=== PATIENT | male | born 1960 | race Caucasian/White ===

== ENCOUNTER 2016-04-25 11:41 | Inpatient (IN) | payer MEDICARE, MEDICAID ==
[2016-04-25] MEDS ORDERED: Ondansetron INJ* 2 MG/ML VIAL IV ONE ×2 (14:39→15:21)
[2016-04-25] MEDS ORDERED: Morphine INJ* 4 MG/ML 1 ML SYRINGE IV ONE ×3 (14:39→17:44)
[2016-04-25] MEDS: NS 0.9% 1000 ML* 2,000 ML IV ONE (14:48)
[2016-04-25 14:51] LABS: Hematocrit 44 % (42-52); Hemoglobin 14.5 g/dl (14.0-18.0); Mean Corpuscular HGB Conc 33 g/dl (31-36); Mean Corpuscular Hemoglobin 31 pg (27-31); Mean Corpuscular Volume 95 fL (80-94); Mean Platelet Volume 9 um3 (7.4-10.4); Red Blood Count 4.62 10^6/ul (4.0-5.4); Red Cell Distribution Width 13 % (10.5-15); White Blood Count 11.8 10^3/ul (3.5-10.8)
[2016-04-25 15:11] LABS: Troponin I 0.01 ng/mL (<0.04)
[2016-04-25 15:13] LABS: B Type Natriuretic Peptide 39 pg/mL
[2016-04-25 15:16] LABS: Ammonia 34 mol/L (16-53)
[2016-04-25 15:17] LABS: Acetaminophen < 15 mcg/mL; Alcohol < 10 mg/dL (<10)
[2016-04-25 15:18] LABS: ALT 11 U/L (7-52); AST 11 U/L (13-39); Albumin 4.5 g/dL (3.2-5.2); Alkaline Phosphatase 51 U/L (34-104); Anion Gap 12 mmol/L (2-11); BUN/Creatinine Ratio 29.3 (8-20); Blood Urea Nitrogen 22 mg/dL (6-24); C Reactive Protein 3.53 mg/L (< 5.00); CO2 Carbon Dioxide 29 mmol/L (22-32); Calcium 9.7 mg/dL (8.6-10.3); Chloride 94 mmol/L (101-111); Creatine Kinase 167 U/L (10-223); EGFR African American 138.1 (>60); EGFR Non-African American 107.3 (>60); Globulin 3.2 g/dL (2-4); Glucose 98 mg/dL (70-100); Lipase 35 U/L (11.0-82.0); Magnesium 2.2 mg/dL (1.9-2.7); Potassium 3.9 mmol/L (3.5-5.0); Sodium 135 mmol/L (133-145); TSH (Thyroid Stimulating Horm) 1.58 mcIU/mL (0.34-5.60); Total Protein 7.7 g/dL (6.4-8.9)
--- NOTE | 2016-04-25 15:38 | RAD ---
INDICATION: Abdominal pain. COMPARISON: Comparison is made with a prior chest x-ray study from December 21, [address] of the chest from April 13, 2011. TECHNIQUE: A portable view of the chest was obtained. FINDINGS: The heart is within normal limits in size. There is a moderate to large hiatal hernia present which appears similar to the prior study. The lungs are clear. No pleural effusion is seen. IMPRESSION: MODERATE TO LARGE HIATAL HERNIA, UNCHANGED.
[2016-04-25] MEDS ORDERED: Iohexol 300* (CONTRAST) 10 ML SDV IV ONE (15:57)
--- NOTE | 2016-04-25 17:26 | RAD ---
Indication: Abdominal pain. Contrast: Administered 72.0 ml of OMNIPAQUE 300 mgi/ml CT of the abdomen and pelvis was performed after oral and IV contrast administration. Lung bases demonstrate no pleural fluid, nodules or masses. There is a large dilated stomach proximally. There is a large paraesophageal hernia containing contrast. There is minimal fluid in the descending duodenum and gastric antrum. The possibility of gastric outlet obstruction should BE considered. The liver is normal in size. No focal lesions or intrahepatic ductal dilatation noted. The gallbladder demonstrates no calcified gallstones. No pericholecystic fluid or wall thickening is noted. The pancreas demonstrates no mass or pancreatic ductal dilatation. The spleen is normal in size. No adrenal masses are noted. The kidneys demonstrate symmetric nephrograms without focal lesions. The retroperitoneal lymphadenopathy is noted. Small bowel demonstrates no evidence of abnormal dilatation. The colon is filled with stool. The kidneys demonstrate symmetric nephrograms without focal lesions. No hydronephrosis is noted. CT of the pelvis demonstrates no retroperitoneal or pelvic lymphadenopathy. The urinary bladder is unremarkable. IMPRESSION: Large paraesophageal hiatal hernia with what appears to be gastric outlet obstruction. Small bowel and colon are otherwise nondilated. Findings discussed with Dr. Maria at the time of the examination.
[2016-04-25 17:34] VITALS: BP 118/67
--- NOTE | 2016-04-25 17:49 | ED ---
Arpit Main Billy, scribed for Vick Maria MD on 04/25/16 at 1433 . Abdominal Pain/Male - HPI Summary HPI Summary: Patient is a 55 year-old male coming [facility] presenting with epigastric pain for the last 4 days. Pain severity 8/10. He states that he has had abdominal pain intermittently for several months, but the pain was much worse today. Worse with any food intake. Positive nausea, vomiting, and dysuria. Last BM 4 days ago. - History of Current Complaint Chief Complaint: EDAbdPain Stated Complaint: ABD PAIN Time Seen by Provider: 04/25/16 14:29 Hx Obtained From: Patient Onset/Duration: Gradual Onset, Lasting Days, Still Present Timing: Constant Severity Initially: Moderate Severity Currently: Moderate Pain Intensity: 8 Pain Scale Used: 0-10 Numeric Location: Epigastric Radiates: No Aggravating Factor(s): Food Alleviating Factor(s): Nothing Associated Signs And Symptoms: Positive: Constipation, Urinary Symptoms, Nausea , Vomiting - Allergies/Home Medications Allergies/Adverse Reactions: Allergies Allergy/AdvReac Type Severity Reaction Status Date / Time No Known Allergies Allergy Verified 04/25/16 13:14 PMH/Surg Hx/FS Hx/Imm Hx Endocrine/Hematology History: Denies: Hx Diabetes Cardiovascular History: Reports: Hx Hypertension GI History: Reports: Hx Gastroesophageal Reflux Disease Infectious Disease History: No Infectious Disease History: Denies: Traveled Outside the [place] in Last 30 Days - Family History Known Family History: Positive: Cardiac Disease - brother, father both at age 56, Other - leukemia (mother) - Social History Alcohol Use: Rare Substance Use Type: Reports: None Smoking Status (MU): Never Smoked Tobacco Review of Systems Negative: Fever Positive: Abdominal Pain, Vomiting, Nausea, Other - constipation Positive: dysuria All Other Systems Reviewed And Are Negative: Yes Physical Exam Triage Information Reviewed: Yes Vital Signs On Initial Exam: Initial Vitals Temp Pulse Resp BP Pulse Ox 98.2 F 102 18 98/69 98 04/25/16 11:41 04/25/16 11:41 04/25/16 11:41 04/25/16 11:41 04/25/16 11:41 Vital Signs Reviewed: Yes Appearance: Positive: Pain Distress - moderate Skin: Positive: Warm, Skin Color Reflects Adequate Perfusion, Dry Head/Face: Positive: Normal Head/Face Inspection Eyes: Positive: EOMI, ELIZABETH ENT: Positive: Normal ENT inspection Neck: Positive: Supple, Nontender Respiratory/Lung Sounds: Positive: Clear to Auscultation, Breath Sounds Present Cardiovascular: Positive: Tachycardia Abdomen Description: Positive: Soft, Other: - diffuse tenderness Bowel Sounds: Positive: Other - high-pitched Musculoskeletal: Positive: Normal, Strength/ROM Intact Neurological: Positive: Normal, Sensory/Motor Intact, Alert, Oriented to Person Place, Time Psychiatric: Positive: Affect/Mood Appropriate - M[place]ulley Coma Scale Coma Scale Total: 15 Diagnostics - Vital Signs Vital Signs Temp Pulse Resp BP Pulse Ox 04/25/16 12:45 98.0 F 96 18 102/61 99 04/25/16 11:41 98.2 F 102 18 98/69 98 - Laboratory Lab Results: Lab Results 04/25/16 04/25/16 04/25/16 Range/Units 14:30 14:30 14:30 WBC 11.8 H (3.5-10.8) 10^3/ul RBC 4.62 (4.0-5.4) 10^6/ul Hgb 14.5 (14.0-18.0) g/dl Hct 44 (42-52) % MCV 95 H (80-94) fL MCH 31 (27-31) pg MCHC 33 (31-36) g/dl RDW 13 (10.5-15) % Plt Count 266 (150-450) 10^3/ul MPV 9 (7.4-10.4) um3 Neut % (Auto) 74.2 (38-83) % Lymph % (Auto) 15.3 L (25-47) % Robeson % (Auto) 10.2 H (1-9) % Eos % (Auto) 0 (0-6) % Baso % (Auto) 0.3 (0-2) % Absolute Neuts (auto) 8.7 H (1.5-7.7) 10^3/ul Absolute Lymphs (auto) 1.8 (1.0-4.8) 10^3/ul Absolute Monos (auto) 1.2 H (0-0.8) 10^3/ul Absolute Eos (auto) 0 (0-0.6) 10^3/ul Absolute Basos (auto) 0 (0-0.2) 10^3/ul Absolute Nucleated RBC 0.01 10^3/ul Nucleated RBC % 0.1 INR (Anticoag Therapy) 0.97 (0.89-1.11) APTT 24.2 L (26.0-36.3) seconds Sodium 135 (133-145) mmol/L Potassium 3.9 (3.5-5.0) mmol/L Chloride 94 L (101-111) mmol/L Carbon Dioxide 29 (22-32) mmol/L Anion Gap 12 H (2-11) mmol/L BUN 22 (6-24) mg/dL Creatinine 0.75 (0.67-1.17) mg/dL Est GFR ( Amer) 138.1 (>60) Est GFR (Non-Af Amer) 107.3 (>60) BUN/Creatinine Ratio 29.3 H (8-20) Glucose 98 (70-100) mg/dL Lactic Acid (0.5-2.0) mmol/L Calcium 9.7 (8.6-10.3) mg/dL Magnesium 2.2 (1.9-2.7) mg/dL Total Bilirubin 0.60 (0.2-1.0) mg/dL AST 11 L (13-39) U/L ALT 11 (7-52) U/L Alkaline Phosphatase 51 (34-104) U/L Ammonia (16-53) mol/L Total Creatine Kinase 167 (10-223) U/L CK-MB (CK-2) 7.8 H (0.6-6.3) ng/mL Troponin I 0.01 (<0.04) ng/mL C-Reactive Protein 3.53 (< 5.00) mg/L B-Natriuretic Peptide ( - 100) pg/mL Total Protein 7.7 (6.4-8.9) g/dL Albumin 4.5 (3.2-5.2) g/dL Globulin 3.2 (2-4) g/dL Albumin/Globulin Ratio 1.4 (1-3) Lipase 35 (11.0-82.0) U/L TSH 1.58 (0.34-5.60) mcIU/mL Acetaminophen < 15 mcg/mL Serum Alcohol < 10 (<10) mg/dL 04/25/16 04/25/16 Range/Units 14:30 14:30 WBC (3.5-10.8) 10^3/ul RBC (4.0-5.4) 10^6/ul Hgb (14.0-18.0) g/dl Hct (42-52) % MCV (80-94) fL MCH (27-31) pg MCHC (31-36) g/dl RDW (10.5-15) % Plt Count (150-450) 10^3/ul MPV (7.4-10.4) um3 Neut % (Auto) (38-83) % Lymph % (Auto) (25-47) % Robeson % (Auto) (1-9) % Eos % (Auto) (0-6) % Baso % (Auto) (0-2) % Absolute Neuts (auto) (1.5-7.7) 10^3/ul Absolute Lymphs (auto) (1.0-4.8) 10^3/ul Absolute Monos (auto) (0-0.8) 10^3/ul Absolute Eos (auto) (0-0.6) 10^3/ul Absolute Basos (auto) (0-0.2) 10^3/ul Absolute Nucleated RBC 10^3/ul Nucleated RBC % INR (Anticoag Therapy) (0.89-1.11) APTT (26.0-36.3) seconds Sodium (133-145) mmol/L Potassium (3.5-5.0) mmol/L Chloride (101-111) mmol/L Carbon Dioxide (22-32) mmol/L Anion Gap (2-11) mmol/L BUN (6-24) mg/dL Creatinine (0.67-1.17) mg/dL Est GFR ( Amer) (>60) Est GFR (Non-Af Amer) (>60) BUN/Creatinine Ratio (8-20) Glucose (70-100) mg/dL Lactic Acid 1.5 (0.5-2.0) mmol/L Calcium (8.6-10.3) mg/dL Magnesium (1.9-2.7) mg/dL Total Bilirubin (0.2-1.0) mg/dL AST (13-39) U/L ALT (7-52) U/L Alkaline Phosphatase (34-104) U/L Ammonia 34 (16-53) mol/L Total Creatine Kinase (10-223) U/L CK-MB (CK-2) (0.6-6.3) ng/mL Troponin I (<0.04) ng/mL C-Reactive Protein (< 5.00) mg/L B-Natriuretic Peptide 39 ( - 100) pg/mL Total Protein (6.4-8.9) g/dL Albumin (3.2-5.2) g/dL Globulin (2-4) g/dL Albumin/Globulin Ratio (1-3) Lipase (11.0-82.0) U/L TSH (0.34-5.60) mcIU/mL Acetaminophen mcg/mL Serum Alcohol (<10) mg/dL Result Diagrams: 04/25/16 14:30 04/25/16 14:30 Lab Statement: Any lab studies that have been ordered have been reviewed, and results considered in the medical decision making process. - Radiology CXR Radiology Interpretation Completed By: Radiologist - MODERATE TO LARGE HIATAL HERNIA, UNCHANGED. - CT abd/pel w CT Interpretation Completed By: Radiologist - Large paraesophageal hiatal hernia with what appears to be gastric outlet obstruction. Small bowel and colon are otherwise nondilated. - EKG 1508 EKG Interpretation: NSR 71 bpm, anterior ST elevation w/o reciprocal changes, no ectopy 1511 EKG Interpretation: NSR 77 bpm, anterior ST elevation w/o reciprocal changes, no ectopy 1514 EKG Interpretation: NSR 79 bpm, anterior ST elevation w/o reciprocal changes, no ectopy Abdominal Pain Fem Course/Dx - Course Assessment/Plan: ADMIT HOSPITALIST STABLE - Diagnoses Provider Diagnoses: Gastric outlet obstruction - Provider Notifications Discussed Care Of Patient With: Dr. Pugh (radiology) @ [id number]: CT abd/pel findings reviewed. Discharge - Discharge Plan Condition: Stable Disposition: ADMITTED TO [facility] documentation as recorded by the Arpit russell Billy accurately reflects the service I personally performed and the decisions made by , Vick Maria MD.
[2016-04-25] MEDS ORDERED: NS 0.9% 1000 ML* 1,000 ML IV ONE (18:45)
[2016-04-25] MEDS ORDERED: Ondansetron INJ* 2 MG/ML VIAL IV PRN (18:45)
[2016-04-25] MEDS ORDERED: Morphine INJ* 4 MG/ML 1 ML SYRINGE IV PRN (18:45)
[2016-04-25] MEDS ORDERED: NS 0.9% 1000 ML* 1,000 ML IV SCH (18:45)
[2016-04-25] MEDS ORDERED: LORazepam INJ* 2 MG/ML 1 ML VIAL IV PUSH ONE (19:01)
[2016-04-25 19:21] LABS: Hematocrit 41 % (42-52); Hemoglobin 13.5 g/dl (14.0-18.0); Mean Corpuscular HGB Conc 33 g/dl (31-36); Mean Corpuscular Hemoglobin 32 pg (27-31); Mean Corpuscular Volume 95 fL (80-94); Mean Platelet Volume 9 um3 (7.4-10.4); Red Blood Count 4.28 10^6/ul (4.0-5.4); Red Cell Distribution Width 13 % (10.5-15); White Blood Count 9.9 10^3/ul (3.5-10.8)
[2016-04-25] MEDS ORDERED: Lidocaine 2% VISCOUS* 15 ML UDC ONE (19:29)
[2016-04-25] MEDS ORDERED: Piperac/Tazob 3.375 gm in NS* 3.375 GM/100 ML BAG IVPB ONE (19:30)
[2016-04-25 19:38] LABS: EGFR African American 178.6 (>60); EGFR Non-African American 138.9 (>60)
[2016-04-25] MEDS ORDERED: Pantoprazole IV* 40 MG IV SCH (20:00)
[2016-04-25] MEDS ORDERED: Lidocaine 2% JELLY* 20 ML (for OR use) TOPICAL ONE (20:00)
--- NOTE | 2016-04-25 21:17 | CONS ---
SURGICAL CONSULTATION: DATE OF CONSULT: 04/25/16 REASON FOR CONSULT: Paraesophageal hernia with gastric outlet obstruction. HISTORY OF PRESENT ILLNESS: This is a 55-year-old male who has developmental disability, autonomic dysfunction with hypotension, hyperlipidemia, and history of laparoscopic Michelle fundoplication in 2005. The history is obtained from the patient's godfather, who accompanies him as the patient is a poor historian. Apparently, the patient has been experiencing worsening dysphagia over a period of months. The patient had an outpatient upper GI study because of his progressive dysphagia performed on 02/01/16 and findings revealed a large chronic paraesophageal hernia with atonic esophagus and there was no progression of contrast into the duodenum during that study. The patient had apparently been awaiting a GI evaluation. Over the past 4 days, the patient has been experiencing intolerance to solids and liquids with recurrent episodes of emesis. The patient has also been experiencing epigastric abdominal pain and the patient presented to the [facility] Emergency Room today because of these symptoms. At the time of his evaluation in the emergency room , he was tachycardic but afebrile and had elevated WBCs of 11.8 with no shift. His electrolytes were notable for hypochloremia with normal lactate. He underwent a CT scan of the abdomen and pelvis with contrast and this demonstrated findings of a large paraesophageal hernia with gastric outlet obstruction. The patient was admitted to the hospitalist service and surgical consultation was subsequently obtained. The patient is complaining of epigastric abdominal pain. There are no fevers or chills. PAST MEDICAL HISTORY: Significant for gastroesophageal reflux disease, autonomic dysfunction associated with chronic lightheadedness, developmental disability, cervical disk herniation, and neuropathy of the lower extremities. PAST SURGICAL HISTORY: Laparoscopic Michelle fundoplication, 2005. MEDICATIONS: 1. Zetia 10 mg daily. 2. Protonix 20 mg b.i.d. 3. Elavil 50 to 100 mg p.o. q.h.s. 4. Neurontin 900 mg p.o. q.h.s. 5. Reglan 5 mg p.o. q.8 hours p.r.n. 6. Lunesta 2 mg p.o. q.h.s. p.r.n. ALLERGIES: None known. SOCIAL HISTORY: He lives with his godfather. He does not work. He does not smoke, use alcohol, or drugs. REVIEW OF SYSTEMS: A 10-point review of systems was completed and significant for the above-mentioned issues, otherwise was negative. PHYSICAL EXAM: A 55-year-old cachectic-appearing gentleman in moderate discomfort. His temperature is 98 degrees, pulse 75, respirations 16, blood pressure 118/67. Head is normocephalic and atraumatic. Sclerae anicteric. Lungs are clear bilaterally. Heart has regular S1 and S2. His abdomen is nondistended, soft, with epigastric tenderness with no rebound or guarding. Bowel sounds are present. There are healed laparoscopic scars. Extremities are warm. DIAGNOSTIC STUDIES/LAB DATA: Repeat WBCs were 9.9, hemoglobin 13.5, hematocrit 41, platelets 233. Chemistries notable for low chloride of 94. BUN and creatinine were 15 and 0.6. Radiographic data as above. IMPRESSION: A 55-year-old gentleman with developmental disability and history of laparoscopic Michelle fundoplication in 2005 with apparent recurrence of hiatal hernia with paraesophageal hernia with gastric outlet obstruction. PLAN/RECOMMENDATION: Due to complex past surgical history on this patient, he is best served with transfer to tertiary care facility for operative repair of his recurrent diaphragmatic hernia. I discussed the findings with Williams Weston NP, from the hospitalist service. He requested that I initiate contact with the surgical service at [facility]. I did contact Temo Gray MD, who has accepted the patient for transfer. CC: Sherwin Booth MD; Temo Gray MD, [facility]* [id number]/[facility] #: [id number] MTDD
--- NOTE | 2016-04-25 21:25 | HP ---
HISTORY AND PHYSICAL: DATE OF ADMISSION: 04/25/16 PRIMARY CARE PROVIDER: Dr. Sherwin Booth. ATTENDING PHYSICIAN WHILE IN THE HOSPITAL: Dr. Devin Mckinney *(report dictated by Ken Weston NP). CHIEF COMPLAINT: Abdominal pain. HISTORY OF PRESENT ILLNESS: Mr. Alonso is a 55-year-old male patient. He has a history of mitral valve prolapse, neuropathy, hyperlipidemia. He comes in to the ER today stating that he has had about a 4-day history of abdominal discomfort. He has noticed that anytime he eats anything he has been vomiting, bringing things up. Last bowel movement was over 4 days ago. He says that he has been having mostly epigastric abdominal discomfort and it has been extremely painful. His godfather who resides with him and who is his surrogate decision maker has been trying to get him to eat solids and changing his diet, but anytime he eats, really things come up, even liquids. He was concerned. He was not getting any better, and he was concerned about his hydration and nutrition status. So, he came in. The patient denies any chest pain. Currently denies any shortness of breath. Says that the pain is controlled currently, but he does have some abdominal discomfort. He denies abdominal distention or worsening bloating of his abdomen. The patient says that he has not had any chest discomfort or shortness of breath, but because of this abdominal pain, he came to the ER and was evaluated and we were asked to evaluate for admission. PAST MEDICAL HISTORY: Significant for: 1. Mitral valve prolapse. 2. Neuropathy. 3. Hyperlipidemia. PAST SURGICAL HISTORY: He has had a Michelle fundoplication [address] Valderrama. HOME MEDICATIONS: Include: 1. Zetia 10 mg daily. 2. Protonix 20 mg p.o. b.i.d. 3. Elavil 50 to 100 mg at bedtime. 4. Gabapentin 900 mg at bedtime. 5. Reglan 5 mg p.o. every 8 hours as needed. 6. Lunesta 2 mg p.o. at bedtime as needed. ALLERGIES TO MEDICATIONS: Include SULFA DRUGS. FAMILY HISTORY: His mother had a history of leukemia. Father had heart disease. SOCIAL HISTORY: He does not smoke. He does not drink. He lives with his godfather. Surrogate decision maker is his godfatherSuzette. REVIEW OF SYSTEMS: There is no documented fever. He does admit to having chills. He denies having any significant weight change. There was no double vision. He denies having any ear discharge. There is no rhinorrhea. No sore throat. No thyroid enlargement. Denied any chest pain. There is epigastric pain. There was nausea and vomiting. No dysuria. No frequency. No loss of consciousness. No pruritus and no skin ulcerations. Review of 14 systems completed, all others negative. PHYSICAL EXAMINATION GENERAL: At this time, Mr. Alonso is a 55-year-old male patient. He is sitting in the hospital bed. He does not appear to be in any acute distress. VITAL SIGNS: Blood pressure 118/67, pulse of 70, respirations 16, O2 sat 98%, and temperature 98.0. HEENT: Head: Atraumatic and normocephalic. Eyes: EOMs intact. Sclerae anicteric and not pale. Throat: Oral mucosa appears to be dry. No oropharyngeal erythema. NECK: Supple. HEART: Sounds S1, S2. Regular rate and rhythm. No murmurs, rubs, or gallops. ABDOMEN: Soft. There was tenderness in the epigastric area, though he did not appear to be distended. Bowel sounds hypoactive. EXTREMITIES: Pulses were 2+ throughout. He is able to move all 4 extremities with 5/5 strength. NEUROLOGIC: The patient is awake, he is alert, and he is oriented x3. He had no gross focal deficits. SKIN: Intact. LABORATORY DATA AND DIAGNOSTIC STUDIES: Today revealed WBC of 11.8, RBC of 4.62, hemoglobin 14.5, hematocrit of 44, and platelet count of 256. INR was 0.97. PTT of 24.2. Sodium was 135, potassium was 3.9, chloride of 94, bicarb was 29, BUN 22, creatinine of 0.75, glucose 98, lactic 1.5, calcium 9.7, magnesium 2.2. Total bili 0.6, AST 11, ALT 11, alk phos 51, ammonia 34. CK is 157. CK-MB of 7.8. Troponin 0.01. CRP of 3.59. Lipase was 35. TSH 1.50. Toxicology was negative. He did have a chest x-ray obtained today, which showed a large hiatal hernia, which was unchanged. He had an abdominal pelvis CT scan obtained today, which showed impression: "Large paraesophageal hiatal hernia which appears to be gastric outlet obstruction, small bowel and colon otherwise nondilated. Findings discussed with Dr. Maria. He had an EKG obtained today as well, which showed a normal sinus rhythm, appeared to have J-point elevation in V1 and V2, rate of 77. It was reviewed to his EKG from 8 years ago, elevation appears to be unchanged with the exception V1 is now new. Old medical records were reviewed. ASSESSMENT AND PLAN: Mr. Alonso is a 55-year-old male patient coming in to the ER today with complaints of abdominal discomfort, CT findings find a paraesophageal hernia with possible gastric outlet obstruction. Hospitalist service was asked to evaluate for admission. He will be admitted under inpatient status for: 1. Paraesophageal hernia with possible gastric outlet obstruction. I did touch base with Surgery, who will come in to see the patient. The plan will be an NG tube wall suction, n.p.o., hydration, and serial abdominal examinations. I did put him on Zosyn empirically and we will hydrate him with saline. 2. Neuropathy: We will hold his meds at this point as he again possibly has an obstruction. 3. Hyperlipidemia: Hold meds at this point. 4. Mitral valve prolapse: Follow up with primary, though I do not hear an active murmur. We can monitor. 5. DVT prophylaxis: We will put him on heparin subcu. 6. Fluids, electrolytes, and nutrition: He is n.p.o. I did order GI prophylaxis in the form on Protonix. TIME SPENT: Time spent on the admission was 60 minutes; greater than half the time was spent [id number] with the patient obtaining my history and physical, other half the time spent going over the plan of care with the patient and implementing plan of care. I did discuss the plan of care with my attending, Dr. Mckinney; he is in agreement. KEN WESTON NP CC: Dr. Sherwin Booth; Dr. Jones* [id number]/[facility] #: [id number] [facility]
[2016-04-25] MEDS ORDERED: Heparin VIAL(*) 5000 UNITS/ML VIAL (FIVE THOUSAND) SUBCUT SCH (22:00)
[2016-04-26] MEDS ORDERED: Piperac/Tazob 3.375 gm in NS* 3.375 GM/100 ML BAG IVPB SCH (01:00)
--- NOTE | 2016-04-26 11:47 | TRS ---
TRANSFER SUMMARY: DATE OF ADMISSION: 04/25/16 DATE OF DISCHARGE: 04/25/16 ATTENDING PHYSICIAN: My attending physician while in the hospital is Manjeet Cleary MD * (report dictated by Williams Weston NP) CONSULTING SURGEON: Dr. Jones. PRIMARY CARE PROVIDER: Dr. Booth. ADMITTING DIAGNOSIS: Includes paraesophageal hernia with gastric outlet obstruction. DISCHARGE DIAGNOSIS: Paraesophageal hernia with gastric outlet obstruction. TRANSFER MEDICATIONS: Include: 1. Heparin 5000 units subcu q.8 hours. 2. Lorazepam 0.5 mg IV once for NG. 3. Morphine 4 mg every 4 hours as needed for pain. 4. Normal saline 125 cc an hour. 5. Zofran 4 mg IV every 6 hours. 6. Protonix 40 mg IV every 24 hours. 7. Pip/tazo 3.375 g IV q.8 hours. HISTORY OF PRESENT ILLNESS AND HOSPITAL COURSE: I refer you to my H and P dictated earlier today. Mr. Alonso is a 55-year-old male patient that presented with complaints of abdominal discomfort and pain associated with nausea and vomiting, unable to keep anything down. The patient presented to our ER, he was admitted. CAT scan was obtained. The CAT can did show a large paraesophageal hiatal hernia with gastric outlet obstruction. Surgical consultation was requested. The patient was seen in consult. There was concern that the surgery needed for this patient would be complex, it would need a tertiary care center as he has had a Chris fundoplication in the past. He was evaluated by Surgery, they felt that he would be better served at a tertiary care center to offer the surgical services that were needed for him that were not offered at this facility. At that point, Dr. Jones who was the surgeon evaluated the patient, I referred to his consult, he felt that he should be transferred. An NG tube had already been placed. He was receiving IV fluids and antibiotics had been started and transfer was arranged to [facility] under the care of Dr. Temo Gray who accepted the patient graciously. CONDITION ON DISCHARGE: Stable. PHYSICAL EXAMINATION: On discharge, Vital Signs: 118/67, pulse 75, respirations 18, O2 sat 100%, and temperature 98.0. At this time, Mr. Alonso is a 55-year-old male patient, appears well nourished and well developed. He does not appear to be in any acute distress. HEENT: Head is atraumatic and normocephalic. Eyes; EOMs intact. Sclerae anicteric and not pale. Neck: Supple. Throat; oral mucosa appears moist. No oropharyngeal erythema. Heart: Sounds S1 and S2. Regular rate and rhythm. No murmurs, rubs, or gallops. Lungs are clear to auscultation bilaterally. No wheezes, rales, or rhonchi. Abdomen was flat and soft. There was tenderness in the epigastric area. Extremities: Pulses 2+ throughout. Able to move all 4 extremities with 5/5 strength. Neurologically he is awake, alert, and oriented x3. No gross focal deficits. Skin is intact. LABORATORY DATA: On discharge, WBC 9.9, RBC 4.28, hemoglobin 13.5, hematocrit 41, and platelet count of 233. INR was 1.09, PTT of 24.8. Sodium was 135, potassium 3.9, chloride of 94, bicarb of 29, BUN 22, creatinine 0.75, glucose 98 , lactic 1.5, calcium 9.5, total mag 2.2, total bili 0.6. AST 11, ALT 11, alk phos 61, CK 167, CK-MB was 7.8, troponin 0.01. Toxicologies were negative. IMAGING: Again CT of the abdomen and chest showed large paraesophageal hiatal hernia, which appears to be a gastric outlet obstruction of small bowel and colon, otherwise non-dilatated. Chest x-ray showed moderate to large hiatal hernia unchanged. EKG showed a normal sinus rhythm. He did have elevation in V1, V2, and V3 but this has been seen previously. No acute changes were noted and a negative troponin. He has had J-point elevation in the past. [facility] [place] [facility] records were reviewed. DISPOSITION: The patient is to be transferred under the care of Dr. Temo Gray for further surgical definitive care, which cannot be offered at [facility]. TIME SPENT: Time spent on the transfer was approximately 40 minutes, greater than half the time was spent [id number] with the patient going over the discharge plan, the other half time was spent implementing the discharge plan. I did discuss the risks and benefits of transfer. WILLIAMS WESTON NP CC: Dr. Jones; Dr. Booth; Manjeet Cleary MD* [id number]/[facility] #: [id number] [facility]
== END 2016-04-25 22:05 | disposition short-term general hospital (02) | DRG 392 ==
LOC: ED 11:41 → MED 16:39
PROVIDERS: ADMIT Hospitalist; ATTEND Hospitalist
DX: K44.0 Diaphragmatic hernia with obstruction, without gangrene (principal); G62.9 Polyneuropathy, unspecified; I34.1 Nonrheumatic mitral (valve) prolapse; K21.9 Gastro-esophageal reflux disease without esophagitis; E78.5 Hyperlipidemia, unspecified; Z88.2 Allergy status to sulfonamides
CPT/HCPCS: 36415; 71010; 74177; 80053; 80320; 80329; 82140; 82550; 82553; 82565; 83605; 83690; 83735; 83880; 84443; 84484; 84520; 85025; 85610; 85730; 86140; 93005; G0480; J2060; J2270; J2405; J2543; Q9967

== ENCOUNTER → 2018-07-02 19:44 | Emergency (ER) | payer MEDICARE, MEDICAID ==
[~2018-07-02 19:44] MED LIST: Bacitracin OINTMENT* 0.5% 0.5 oz TUBE ONE; Bacitracin OINTMENT* 0.5% 0.5 oz TUBE TOPICAL ONE; Cephalexin CAP* 500 MG PO ONE; DOXYcycline CAP(*) 100 MG PO ONE; oxyCODONE TAB* 5 MG TAB PO ONE
--- OUTSIDE RECORDS SUMMARY | 2018-07-02 20:11 | XMS REPORT ---
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 [id number] ALLERGIES No Information ENCOUNTERS Encounter Location Date Diagnosis [facility] [address] [place], [place] [address] [facility] [address] [facility] June, [place] [address] [facility] [address] [place], [place] [address] [facility] [address] [place], Feb, [place] M54.2 [place] [address] Primary insomnia F51.01 [facility] [address] [place], [place] [address] [facility] [address] [facility] Jan, High cholesterol E78.00 [place] [address] [facility] [address] [place], Dec, [place]om[place] R10.9 [place] [address] High cholesterol E78.00 [facility] [address] [place], [place] [address] [facility] [address] [place], [place] [address] [facility] [address] [place], [place] [address] [facility] [address] [facility] [place], Dec, Gastric pain R10.9 ; [place] [address] Genetic disorder Q99.9 ; Need for hepatitis C screening test Z11.59 and Lipid screening Z13.220 [facility] [address] [place] [address] [place], [place] [address] [facility] [address] [place] [address] [place], [place] [address] [facility] [address] [place] [address] [place], Dec, [place] [address] infectious origin R19.7 and Dehydration E86.[address] Nov, [place] [address] Nov, [place] [address] [facility] [address] [place] [address] [place], [place] [address] [place], Sep, Well adult exam Z00.00 ; [place] [address] Genetic disorder Q99.9 ; Cellulitis of buttock L03.317 ; Screening for lipid disorders Z13.220 ; Screening for diabetes mellitus Z13.1 ; Need for hepatitis C screening test Z11.59 and Encounter for screening for HIV Z11.[address] Sep, [place] [address] Sep, [place] [address] [place], [place] [address] Aug, [place] [address] [place], Aug, [place] [address] L03.317 and Cutaneous abscess of buttock L02.[address] Aug, [place] [address] IMMUNIZATIONS No Known Immunizations SOCIAL HISTORY Never Assessed REASON FOR REFERRAL FUNCTIONAL STATUS PLAN OF CARE VITAL SIGNS MEDICATIONS Medication Instructions Dosage Frequency Start End Date Duration Status Date Gabapentin 300 Orally Once a 3 capsule 24h Sep, 90 days Active MG day before 2018 bedtime PROCEDURES No Known procedures RESULTS No Results REASON FOR VISIT Refill Medication Insurance Providers [facility] Member Patient Patient Patient Patient Patient Subscriber Subscriber Subscriber Group Insurance Plan Plan Plan Plan ID Relationship Address Phone Name Date of ID Name Date of No Type Insurance Insurance Insurance Coverage to Subscriber Address Phone Name Dates Medicare National Medicare self Oscar [id number] PPS QMB No Government 41 PPS QMB No [employer] [address] [place] [id number] Medicare National Medicare self Oscar [id number] PPS QMB No Government 41 PPS QMB No [employer] [address] [place] [id number] Medicaid [id number] [phone] Medicaid self Oscar [id number] [facility] [address] [id number] MEDICAL (GENERAL) HISTORY Type Description Date Surgical History Hernia 2017 Hospitalization History see above
--- NOTE | 2018-07-02 21:58 | ED ---
Skin Complaint - HPI Summary HPI Summary: Patient complains of pain, redness and swelling to medial surface of dorsal right hand after possible insect bite or splinter 07/01/18. Denies fever, cough , sore throat, CP, SOB, N/V/D, bowel pain, change in urine, change in BM. Medical history is HDL, HTN. - History of Current Complaint Chief Complaint: EDExtremityUpper Time Seen by Provider: 07/02/18 21:01 Stated Complaint: BITTEN A COUPLE DAYS AGO, SWOLLEN/PUSS PER GODFATH Hx Obtained From: Patient Onset/Duration: Started Days Ago Skin Exposure Onset/Duration: Hours Ago Timing: Constant Onset Severity: Mild Current Severity: Moderate Pain Intensity: 10 Pain Scale Used: 0-10 Numeric Skin Location: Discrete Aggravating Symptom(s): Nothing Alleviating Symptom(s): Nothing Associated Signs & Symptoms: Negative - Allergy/Home Medications Allergies/Adverse Reactions: Allergies Allergy/AdvReac Type Severity Reaction Status Date / Time Sulfa (Sulfonamide Allergy Unknown Verified 07/02/18 20:05 Antibiotics) Reaction Details PMH/Surg Hx/FS Hx/Imm Hx Endocrine/Hematology History: Denies: Hx Diabetes Cardiovascular History: Reports: Hx Hypertension GI History: Reports: Hx Gastroesophageal Reflux Disease, Other GI Disorders History: Denies: Hx Dialysis Sensory History: Reports: Hx Contacts or Glasses Opthamlomology History: Reports: Hx Contacts or Glasses Neurological History: Reports: Hx Developmental Delay - Surgical History Surgery Procedure, Year, and Place: gastroparesis, with surgery to stomach Infectious Disease History: No Infectious Disease History: Denies: Traveled Outside the [place] in Last 30 Days - Family History Known Family History: Positive: Cardiac Disease - brother, father both at age 56, Other - leukemia (mother) - Social History Alcohol Use: Daily Alcohol Amount: wine daily w/meals up until 5 days ago Substance Use Type: Reports: None Smoking Status (MU): Never Smoked Tobacco Review of Systems Constitutional: Negative Eyes: Negative ENT: Negative Cardiovascular: Negative Respiratory: Negative Gastrointestinal: Negative Genitourinary: Negative Musculoskeletal: Negative Skin: Other Neurological: Negative Psychological: Normal All Other Systems Reviewed And Are Negative: Yes Physical Exam - Summary Physical Exam Summary: Apical abscess with erythema and swelling noted to medial surface of dorsum of his right hand. PMS intact distally. Normal range of motion of fingers and wrist. Triage Information Reviewed: Yes Vital Signs On Initial Exam: Initial Vitals Temp Pulse Resp BP Pulse Ox 98.3 F 95 16 124/56 97 07/02/18 20:00 07/02/18 20:00 07/02/18 20:00 07/02/18 20:00 07/02/18 20:00 Vital Signs Reviewed: Yes Appearance: Positive: Well-Appearing Skin: Positive: Warm Head/Face: Positive: Normal Head/Face Inspection Eyes: Positive: Normal Neck: Positive: Supple Respiratory/Lung Sounds: Positive: Clear to Auscultation Cardiovascular: Positive: Normal Abdomen Description: Positive: Nontender Musculoskeletal: Positive: Normal Neurological: Positive: Normal Psychiatric: Positive: Normal AVPU Assessment: Alert - [place] Coma Scale Best Eye Response: 4 - Spontaneous Best Motor Response: 6 - Obeys Commands Best Verbal Response: 5 - Oriented Coma Scale Total: 15 Procedures - Incision and Drainage 1 Site: right hand Anesthesia: Local Instrument(s): Scalpel Diagnostics - Vital Signs Vital Signs Temp Pulse Resp BP Pulse Ox 07/02/18 20:00 98.3 F 95 16 124/56 97 - Laboratory Lab Statement: Any lab studies that have been ordered have been reviewed, and results considered in the medical decision making process. Course/Dx - Course Course Of Treatment: Patient complains of pain, redness and swelling to medial surface of dorsal right hand after possible insect bite or splinter 07/01/18. Denies fever, cough, sore throat, CP, SOB, N/V/D, bowel pain, change in urine, change in BM. Medical history is HDL, HTN. Physical exam:Apical abscess with erythema and swelling noted to medial surface of dorsum of his right hand. PMS intact distally. Normal range of motion of fingers and wrist. Vital signs within normal limits. I&D performed. Positive purulent drainage. Rx for doxycycline. Started on Doxy here in the ED. Microbiology called at 23:45 stating wound culture from right hand abscess was positive for staph aureus and positive for MRSA. Patient was placed on doxycycline and given Rx for same prior to discharge. No further treatment needed. - Diagnoses Provider Diagnoses: Abscess Discharge - Sign-Out/Discharge Documenting (check all that apply): Patient Departure Patient Received Moderate/Deep Sedation with Procedure: No - Discharge Plan Condition: Stable Disposition: HOME Prescriptions: DOXYcycline CAP(*) [DOXYcycline 100MG CAP(*)] 100 mg PO BID 10 Days #20 cap Patient Education Materials: Abscess (ED) Referrals: Yan Lau PA [Primary Care Provider] - Additional Instructions: Wash wound with warm running water and soap. Use warm compresses or warm water to help drain abscess. Keep incision open to help drain abscess. Take antibiotics as directed. Take Tylenol or ibuprofen for pain. Keep covered when not washing. Return to the ED for any new or worsening symptoms. - Billing Disposition and Condition Condition: STABLE Disposition: Home
[2018-07-02 22:20] VITALS: BP 114/63
--- NOTE | 2018-07-03 06:56 | PN ---
Progress Note - Progress Note Date of Service: 07/02/18 Note: Wound culture grew MRSA positive and staph aureus positive Patient was placed on doxycycline prior to discharge This is sensitive to organism Nothing further at this time
== END | disposition home or self-care (01) ==
LOC: ED 19:44
DX: L02.511 Cutaneous abscess of right hand (principal); I10 Essential (primary) hypertension; E78.5 Hyperlipidemia, unspecified; Z88.2 Allergy status to sulfonamides; K21.9 Gastro-esophageal reflux disease without esophagitis
CPT/HCPCS: 10060; 87070; 87077; 87186; 87205; 87640; 87641; 99282; A9270-GY